=== PATIENT | male | born 1960 | race Caucasian/White ===

== ENCOUNTER → 2017-04-04 | Outpatient (CLI) | payer BC ==
--- NOTE | 2017-04-04 19:28 | RADRPT ---
Vent Rate: 74 bpm RR Interval: 0 msec [place] Interval: 168 msec QRS Duration: 84 msec QT Interval: 348 msec QTC Interval: 386 msec P-R-T [place]: 64 - 79 - 76 degrees Normal sinus rhythm Normal ECG Electronically Signed By: Naman Brito [id number]
== END | disposition home or self-care (01) ==
LOC: EKG 09:42
PROVIDERS: ATTEND Internal Medicine
DX: Z01.818 Encounter for other preprocedural examination (principal)
CPT/HCPCS: 93005